=== PATIENT | female | born 1980 | race Caucasian/White ===

== ENCOUNTER → 2016-12-20 | Outpatient (CLI) | payer BC ==
[2013-02-15 11:12] VITALS: BP 122/66
[~2016-12-20] MED LIST: FLUOXETINE; SPIRONOLACTONE25 MG
== END ==
LOC: LAB 15:18
DX: R10.2 Pelvic and perineal pain (principal)
CPT/HCPCS: Q0111

== ENCOUNTER 2017-06-06 09:50 | Emergency (ER) | payer BC ==
[~2017-06-06] VITALS: Ht 170.2 cm; Wt 52.3 kg
[2017-06-06] MEDS ORDERED: ALPRAZOLAM0.5 MG PO (09:56)
[2017-06-06 10:55] LABS: HEMATOCRIT 49.4 % (37.0-47.0); HEMOGLOBIN 16.5 g/dL (12.5-16.0); MEAN CELL VOLUME 88 fl (78-100); MEAN CORPUSCULAR HEMOGLOBIN 30 pg (27-31); MEAN CORPUSCULAR HGB CONC 33 g/dL (33-37); MEAN PLATELET VOLUME 11.5 fl (7.4-10.4); PLATELET COUNT 205 K/mm3 (130-400); RED BLOOD COUNT 5.59 M/mm3 (4.10-5.30); RED CELL DISTRIBUTION WIDTH 12.8 % (11.5-14.5); WHITE BLOOD COUNT 8.6 K/mm3 (4.8-10.8)
[2017-06-06 11:08] LABS: LYMPHOCYTE 10 % (20-51); MONOCYTE 7 % (3-10); NEUTROPHILS 83 % (42-75)
[2017-06-06 11:13] LABS: ALBUMIN 4.9 g/dL (3.5-5.0); CALCIUM 9.4 mg/dL (8.4-10.2); POTASSIUM 3.9 mmol/L (3.6-5.0); TOTAL BILIRUBIN 2.8 mg/dL (0.2-1.3); TOTAL PROTEIN 7.9 g/dL (6.3-8.2)
[2017-06-06 11:31] LABS: URINE APPEARANCE CLEAR; URINE BILIRUBIN NEGATIVE (NEGATIVE); URINE BLOOD TRACE (NEGATIVE); URINE COLOR YELLOW; URINE GLUCOSE NEGATIVE (NEGATIVE); URINE KETONE 3+ (NEGATIVE); URINE LEUKOCYTE ESTERASE NEGATIVE (NEGATIVE); URINE NITRATE NEGATIVE (NEGATIVE); URINE PROTEIN(semi-quant) 1+ mg/dL (NEGATIVE); URINE UROBILINOGEN NORMAL (NORMAL); URINE WBC 0-1 /hpf (0-3)
[2017-06-06] MEDS ORDERED: ZOFRAN ODT8 M1 PO (12:00)
[2017-06-06 12:08] VITALS: BP 131/49
== END 2017-06-06 12:05 | disposition home or self-care (01) ==
LOC: ED 09:50
PROVIDERS: Physician Assistant
DX: K52.9 Noninfective gastroenteritis and colitis, unspecified (principal); R79.89 Other specified abnormal findings of blood chemistry; F17.210 Nicotine dependence, cigarettes, uncomplicated; Z90.710 Acquired absence of both cervix and uterus; Z90.49 Acquired absence of other specified parts of digestive tract
CPT/HCPCS: J2405; J7120; Q9967

== ENCOUNTER → 2017-06-10 | Outpatient (CLI) | payer BC ==
[2017-06-06 12:08] VITALS: BP 131/49
[~2017-06-10] MED LIST changes: +ALPRAZOLAM0.5 MG PO; +ZOFRAN ODT8 M1 PO
== END ==
LOC: LAB 10:51
DX: R19.5 Other fecal abnormalities (principal); Z88.7 Allergy status to serum and vaccine

== ENCOUNTER → 2017-08-24 | Outpatient (CLI) | payer BC ==
[2017-08-24 10:56] LABS: PH-URINE 5.5 (5.0 - 8.0); URINE APPEARANCE CLOUDY; URINE BILIRUBIN NEGATIVE (NEGATIVE); URINE BLOOD TRACE (NEGATIVE); URINE COLOR YELLOW; URINE GLUCOSE NEGATIVE (NEGATIVE); URINE KETONE NEGATIVE (NEGATIVE); URINE LEUKOCYTE ESTERASE TRACE (NEGATIVE); URINE NITRATE NEGATIVE (NEGATIVE); URINE PROTEIN(semi-quant) TRACE mg/dL (NEGATIVE); URINE UROBILINOGEN NORMAL (NORMAL)
[2017-08-24 10:57] LABS: CLUE CELLS PRESENT (Not Observd); URINE MUCUS PRESENT (NOT PRESENT)
== END ==
LOC: LAB 09:49
PROVIDERS: Nurse Practitioner Family
DX: R10.9 Unspecified abdominal pain (principal); Z88.7 Allergy status to serum and vaccine
CPT/HCPCS: Q0111

== ENCOUNTER → 2017-11-06 | Outpatient (CLI) | payer BC ==
[2017-11-06 16:28] LABS: EOS # 0.2 (0.04-0.40); EOS % 2.8 % (1.0-5.0); HEMATOCRIT 44.6 % (37.0-47.0); HEMOGLOBIN 14.6 g/dL (12.5-16.0); LYMPH# 1.1 (1.50-4.00); MEAN CELL VOLUME 90 fl (78-100); MEAN CORPUSCULAR HEMOGLOBIN 29 pg (27-31); MEAN CORPUSCULAR HGB CONC 33 g/dL (33-37); MEAN PLATELET VOLUME 11.2 fl (7.4-10.4); MONO # 0.4 (0.20-0.80); NEU # 3.7 (1.40-6.50); PLATELET COUNT 198 K/mm3 (130-400); RED BLOOD COUNT 4.97 M/mm3 (4.10-5.30); RED CELL DISTRIBUTION WIDTH 12.8 % (11.5-14.5); WHITE BLOOD COUNT 5.3 K/mm3 (4.8-10.8)
[2017-11-06 16:53] LABS: ALBUMIN 4.7 g/dL (3.5-5.0); BUN/CREATININE RATIO 11.8 (6.0-26.0); CALCIUM 8.7 mg/dL (8.4-10.2); POTASSIUM 3.7 mmol/L (3.6-5.0); TOTAL BILIRUBIN 2.2 mg/dL (0.2-1.3); TOTAL PROTEIN 7.6 g/dL (6.3-8.2)
[2017-11-06 17:42] LABS: ERYTHROCYTE SEDIMENTATION RATE 2 mm/hr (0-20)
== END ==
LOC: LAB 16:16
PROVIDERS: Internal Medicine
DX: E28.2 Polycystic ovarian syndrome (principal); K58.9 Irritable bowel syndrome, unspecified; R20.2 Paresthesia of skin

== ENCOUNTER → 2018-08-14 | Outpatient (CLI) | payer BC ==
[2018-08-14 12:06] LABS: URINE APPEARANCE HAZY; URINE BILIRUBIN NEGATIVE (NEGATIVE); URINE BLOOD NEGATIVE (NEGATIVE); URINE COLOR YELLOW; URINE GLUCOSE NEGATIVE (NEGATIVE); URINE KETONE NEGATIVE (NEGATIVE); URINE LEUKOCYTE ESTERASE NEGATIVE (NEGATIVE); URINE NITRATE NEGATIVE (NEGATIVE); URINE PROTEIN(semi-quant) NEGATIVE (NEGATIVE); URINE UROBILINOGEN NORMAL (NORMAL)
== END ==
LOC: LAB 11:43
PROVIDERS: Internal Medicine
DX: R10.9 Unspecified abdominal pain (principal)

== ENCOUNTER → 2019-02-13 | Outpatient (CLI) | payer BC ==
[2019-02-13 15:42] LABS: CLUE CELLS NOT OBSERVED (Not Observd)
[2019-02-13 15:47] LABS: PH-URINE 6.5 (5.0 - 8.0); URINE APPEARANCE CLEAR; URINE BILIRUBIN NN (NEGATIVE); URINE BLOOD NEGATIVE (NEGATIVE); URINE COLOR YELLOW; URINE GLUCOSE NEGATIVE (NEGATIVE); URINE KETONE NEGATIVE (NEGATIVE); URINE LEUKOCYTE ESTERASE NEGATIVE (NEGATIVE); URINE MUCUS PRESENT (NOT PRESENT); URINE NITRATE NEGATIVE (NEGATIVE); URINE PROTEIN(semi-quant) NEGATIVE (NEGATIVE); URINE UROBILINOGEN NORMAL (NORMAL)
== END ==
LOC: LAB 15:12
PROVIDERS: Physician Assistant
DX: N89.8 Other specified noninflammatory disorders of vagina (principal); R10.2 Pelvic and perineal pain
CPT/HCPCS: Q0111

== ENCOUNTER → 2019-06-27 | Outpatient (CLI) | payer BC ==
[2019-06-27 14:44] LABS: EOS # 0.2 (0.04-0.40); EOS % 3.4 % (1.0-5.0); HEMATOCRIT 44.9 % (37.0-47.0); HEMOGLOBIN 14.7 g/dL (12.5-16.0); LYMPH# 1.1 (1.50-4.00); MEAN CELL VOLUME 90 fl (78-100); MEAN CORPUSCULAR HEMOGLOBIN 29 pg (27-31); MEAN CORPUSCULAR HGB CONC 33 g/dL (33-37); MEAN PLATELET VOLUME 10.6 fl (7.4-10.4); MONO # 0.5 (0.20-0.80); NEU # 4.2 (1.40-6.50); PLATELET COUNT 228 K/mm3 (130-400); RED BLOOD COUNT 5.01 M/mm3 (4.10-5.30); RED CELL DISTRIBUTION WIDTH 12.6 % (11.5-14.5); WHITE BLOOD COUNT 5.9 K/mm3 (4.8-10.8)
[2019-06-27 15:06] LABS: ALBUMIN 4.4 g/dL (3.5-5.0); POTASSIUM 3.8 mmol/L (3.5-5.1)
[2019-06-27 15:07] LABS: CALCIUM 8.7 mg/dL (8.3-10.5)
[2019-06-27 15:08] LABS: TOTAL PROTEIN 6.9 g/dL (6.4-8.3)
[2019-06-27 15:10] LABS: TOTAL BILIRUBIN 0.9 mg/dL (0.2-1.2)
[2019-06-27 16:00] LABS: ERYTHROCYTE SEDIMENTATION RATE 3 mm/hr (0-20)
== END ==
LOC: LAB 14:23
PROVIDERS: Family Medicine
DX: M25.50 Pain in unspecified joint (principal); M79.18 Myalgia, other site; R11.0 Nausea

== ENCOUNTER → 2019-07-16 | Outpatient (CLI) | payer BC ==
[2019-07-17 13:56] LABS: ANA SCREEN with REFLEX Negative (Negative)
[2019-07-17 14:09] LABS: VITAMIN D 1,25 DIHYDROXY 43.7 pg/mL (())
== END ==
LOC: LAB 09:45
PROVIDERS: Internal Medicine
DX: G40.109 Localization-related (focal) (partial) symptomatic epilepsy and epileptic syndromes with simple partial seizures, not intractable, without status epilepticus (principal); K90.9 Intestinal malabsorption, unspecified; M25.50 Pain in unspecified joint; M79.10 Myalgia, unspecified site; R20.2 Paresthesia of skin

== ENCOUNTER 2020-10-06 16:04 | Emergency (ER) | payer BC ==
[2020-10-06 16:10] VITALS: BP 96/55
[2020-10-06] MEDS ORDERED: ALPRAZOLAM1 MG PO (16:15)
[2020-10-06] MEDS ORDERED: SPIRONOLACTONE100 MG PO (16:16)
[2020-10-06] MEDS ORDERED: OXCARBAZEPINE300 M1 PO (16:16)
[2020-10-06] MEDS ORDERED: NORCO 325 MG-51 TA1 PO ×2 (17:36→17:37)
== END 2020-10-06 17:54 | disposition home or self-care (01) ==
LOC: ED 16:04
DX: T23.221A Burn of second degree of single right finger (nail) except thumb, initial encounter (principal); T31.10 Burns involving 10-19% of body surface with 0% to 9% third degree burns; F17.210 Nicotine dependence, cigarettes, uncomplicated; Z88.7 Allergy status to serum and vaccine; X19.XXXA Contact with other heat and hot substances, initial encounter
CPT/HCPCS: 90715; J1885

== ENCOUNTER → 2021-02-03 | Outpatient (CLI) | payer BC ==
[~2021-02-03] MED LIST changes: +ALPRAZOLAM1 MG PO; +NORCO 325 MG-51 TA1 PO; +OXCARBAZEPINE300 M1 PO; +SPIRONOLACTONE100 MG PO
== END ==
LOC: LAB 14:48
DX: Z20.822 Contact with and (suspected) exposure to COVID-19 (principal)